=== PATIENT | male | born 1990 | race Caucasian/White ===

== ENCOUNTER 2017-10-30 21:00 | Inpatient (IN) | payer MEDICAID, OTHER ==
[~2017-10-30] VITALS: Ht 170.2 cm; Wt 64.5 kg
[2017-10-30 09:30] VITALS: RESP 18
[2017-10-30 21:30] VITALS: RESP 18
[2017-10-30 22:00] VITALS: BP 117/77; RESP 18
[2017-10-30 23:00] VITALS: BP 119/80; RESP 16
[2017-10-31] VITALS (49 sets, daily range): BP systolic 93–135; BP diastolic 61–117; PULSE 92–133; RESP 16–28; Ht 170.2 cm; Wt 64.5 kg
[2017-10-31] MEDS ORDERED: ACETAMINOPHEN 650 MG SUPP PR PRN (00:30)
[2017-10-31] MEDS ORDERED: ONDANSETRON 4 MG INJ IV PRN (00:30)
[2017-10-31] MEDS ORDERED: ALBUTEROL/IPRATROPIUM (NEB) 3 ML AMP HHN SCH (01:00)
[2017-10-31] MEDS ORDERED: DEXTROSE 5%-0.45% NACL 1,000 ML IV SCH (01:00)
[2017-10-31] MEDS: D5-NS + KCL 20 MEQ 1,000 ML IV SCH ×3 (03:48→20:54)
[2017-10-31] MEDS: morphine 2 MG INJ IV PRN ×3 (03:49→22:34)
[2017-10-31] MEDS ORDERED: SOD CHLORIDE 0.9% 1,000 ML IV ONE (04:00)
[2017-10-31 04:11] LABS: HEMATOCRIT 26.8 % (42.0-52.0); HEMOGLOBIN 9.3 g/dl (14.0-18.0)
[2017-10-31] MEDS ORDERED: PANTOPRAZOLE 40 MG INJ ONE (04:51)
[2017-10-31] MEDS: PANTOPRAZOLE 40 MG INJ IV SCH ×2 (05:11→18:49)
[2017-10-31] MEDS: IPRATROPIUM (HFA) 12.9 GM INHALER INH SCH ×5 (05:17→21:09)
[2017-10-31] MEDS: ALBUTEROL HFA 8 GM INHALER INH SCH ×5 (05:17→21:09)
[2017-10-31 06:04] LABS: BASOPHILS % 0.4 % (0.0-2.0); EOSINOPHILS # 0.2 10^3/ul (0.0-0.5); EOSINOPHILS % 2.2 % (0.0-7.0); HEMATOCRIT 24.9 % (42.0-52.0); HEMOGLOBIN 8.6 g/dl (14.0-18.0); LYMPHOCYTES # 2.9 10^3/ul (0.8-2.9); LYMPHOCYTES % 27.6 % (15.0-51.0); MEAN CORPUSCULAR HEMOGLOBIN 30.6 pg (29.0-33.0); MEAN CORPUSCULAR HGB CONC 34.5 g/dl (32.0-37.0); MEAN CORPUSCULAR VOLUME 88.6 fl (82.0-101.0); MEAN PLATELET VOLUME 9.7 fl (7.4-10.4); MONOCYTES % 9.8 % (0.0-11.0); NEUTROPHIL # 6.4 10^3/ul (1.6-7.5); NEUTROPHILS % 59.4 % (39.0-77.0); PLATELET COUNT 363 10^3/UL (140-415); RED BLOOD COUNT 2.81 10^6/ul (4.70-6.10); RED CELL DISTRIBUTION WIDTH 11.9 % (11.5-14.5); WHITE BLOOD COUNT 10.7 10^3/ul (4.8-10.8)
[2017-10-31 06:38] LABS: CALCIUM 9.3 mg/dl (8.4-10.2); CREATININE 0.69 mg/dl (0.61-1.24); POTASSIUM 3.7 mmol/L (3.5-5.1)
[2017-10-31 06:40] LABS: MAGNESIUM 1.6 mg/dl (1.7-2.5); PHOSPHORUS 4.9 mg/dl (2.5-4.9)
[2017-10-31] MEDS ORDERED: PENDING SANTYL ORDER FOR WOUND CARE XX PRN (07:00)
--- NOTE | 2017-10-31 08:34 | CONS ---
Date/Time of Note Date/Time of Note DATE: 10/31/17 TIME: 08:28 Assessment/Plan Assessment/Plan Additional Assessment/Plan The G-tube dressing was taken down exposing a very large clot. This clot was removed in its entirety and the area cleaned at the time of this examination there was no bleeding at the G-tube site. Plan continue monitoring H&H and observe for bleeding. If the patient rebleeds we may have to remove the G-tube and pack the tract with Surgicel as an initial measure. Further recommendations will be forthcoming and based on the patient' s further workup and clinical course. Consultation Date/Type/Reason Admit Date/Time Oct 30, 2017 at 21:00 Date of Consultation: Oct 31, 2017 Reason for Consultation Bleeding at gastrostomy site Hx of Present Illness The patient is a 27-year-old ventilator dependent male who was in [place] yesterday. At that time he started to develop active bleeding from the G-tube site. The NG output at that time was bilious, while the blood was coming around the G-tube. The patient was seen by Dr. Hoffmann who cauterized the G- tube tract site. The patient later continued to bleed, and was therefore transferred to the intensive care unit for closer monitoring and possible surgical intervention. Since his arrival to the intensive care unit he has had no further bleeding and his H&H is stable. Subjective hx not possible: pt non-verbal Past Medical History Medical History: other (Ventilator dependency) Social History Alcohol Use: none Smoking Status: Former smoker Exam/Review of Systems Vital Signs Vitals Vital Signs Date Time Temp Pulse Resp B/P Pulse Ox O2 Delivery O2 Flow Rate FiO2 10/31/17 08:00 99.8 104 18 121/75 100 Mechanical Ventilator 10/31/17 07:17 30 Intake and Output 10/30/17 10/30/17 10/31/17 15:00 23:00 07:00 Intake Total 0 ml 1400 ml Output Total 0 ml Balance 0 ml 1400 ml Exam Constitutional: non-verbal, obese Head: normocephalic Eyes: nl conjunctiva ENMT: intubated, other (Tracheostomy) Neck: supple Respiratory: clear to auscultation Cardiovascular: regular rate and rhythm Gastrointestinal: other (There is a G-tube site in the left upper quadrant with a large formed clot around the G-tube hub), soft Results Result Diagram: 10/31/17 0509 10/31/17 0509 Results 24 hrs Laboratory Tests Test 10/31/17 01:50 10/31/17 05:09 Hemoglobin 9.3 L 8.6 L Hematocrit 26.8 L 24.9 L White Blood Count 10.7 # Red Blood Count 2.81 L Mean Corpuscular Volume 88.6 Mean Corpuscular Hemoglobin 30.6 Mean Corpuscular Hemoglobin Concent 34.5 Red Cell Distribution Width 11.9 Platelet Count 363 Mean Platelet Volume 9.7 Neutrophils % 59.4 Lymphocytes % 27.6 Monocytes % 9.8 Eosinophils % 2.2 Basophils % 0.4 Nucleated Red Blood Cells % 0.0 Neutrophils # 6.4 Lymphocytes # 2.9 Monocytes # 1.0 H Eosinophils # 0.2 Basophils # 0.0 Nucleated Red Blood Cells # 0.0 Sodium Level 143 Potassium Level 3.7 Chloride Level 105 Carbon Dioxide Level 26 Anion Gap 16 Blood Urea Nitrogen 10 Creatinine 0.69 Glucose Level 108 Calcium Level 9.3 Phosphorus Level 4.9 Magnesium Level 1.6 L Medications Medications Current Medications Pantoprazole 40 mg 40 mg BID@06,18 IV Last administered on 10/31/17 05:11; Admin Dose 40 MG; Start 10/31/17 at 06:00 Levofloxacin/ Dextrose (Levaquin 500mg/ D5W 100 ml (Pmx)) 100 ml @ 100 mls/hr Q24H IVPB ; Start 10/31/17 at 18:30; Stop 11/03/17 at 19:29 Morphine Sulfate (morphine) 2 mg Q4H PRN IV PAIN Last administered on 03:49; Admin Dose 2 MG; Start 10/31/17 at 00:30 Ondansetron HCl (Zofran Inj) 4 mg Q6H PRN IV NAUSEA AND/OR VOMITING; Start at 00:30 Acetaminophen 650 mg 650 mg Q4H PRN [place] PAIN AND OR ELEVATED TEMP; Start at 00:30 Dextrose/Sodium Chloride 1,000 ml @ 100 mls/hr Q10H IV ; Start 10/31/17 at 01: 00 Multivitamins 10 ml/Dextrose/ Sodium Chloride 1,010 ml @ 100 mls/hr DAILY IV ; Start 10/31/17 at 09:00 Potassium Chloride/Dextrose/ Sod Cl (D5-NS + KCl 20 Meq) 1,000 ml @ 100 mls/hr Q10H IV Last administered on 10/31/17t 03:48; Admin Dose 100 MLS/HR; Start at 01:00 AKUA FLOWERS MD Oct 31, 2017 08:34
[2017-10-31] MEDS: MULTIVITAMINS 10 ML in DEXTROSE 5%-0.45% NACL 1,000 ML IV SCH (09:30)
[2017-10-31 12:25] LABS: HEMATOCRIT 22.4 % (42.0-52.0); HEMOGLOBIN 7.7 g/dl (14.0-18.0)
--- NOTE | 2017-10-31 13:13 | CONS ---
Date/Time of Note Date/Time of Note DATE: 10/31/17 TIME: 13:09 Assessment/Plan Assessment/Plan Additional Assessment/Plan Chest x-ray was reviewed from of this month which is showing left lower lobe basilar atelectasis. Ventilator setting; AC of 16, tidal volume 500, PEEP of 5, 30% FiO2. Assessment and recommendations; 1. Patient admitted with bleeding from G-tube site patient to undergo blood transfusion. 2. Mild sinus tachycardia from anemia. 3. Chronic respiratory failure with a history of neuro trauma with C 1 spinal injury. Continue current supportive care. Transfuse packed RBC. Monitor H&H. Obtain follow-up chest x-ray. Continue Levaquin for now. Consultation Date/Type/Reason Admit Date/Time Oct 30, 2017 at 21:00 Date of Consultation: Oct 31, 2017 Type of Consultation: Pulmonary/critical care Reason for Consultation Pulmonary consultation requested for evaluation of chronic respiratory failure. Next History of presenting any; patient is a 27-year-old male who was transferred to [facility] ICU after developing bleeding at the G-tube placement site yesterday at [facility]. Patient was evaluated by the drapery counselor and the site was cauterized however the patient continued to bleed. The wound was evaluated by general surgeon and a large clot was removed with dressing applied. By the time I saw the patient in ICU, patient is completely awake and alert on ventilator via tracheostomy and did not appear to be in any distress. Patient denies having any shortness of breath or abdominal pain. Past medical history; 1. history of neuro trauma with left hemiplegia. 2. Status post G-tube placement and tracheostomy. Patient remains ventilator dependent. Patient also has a C1 cervical spine injury. Medications; reviewed. Allergies; none. Social history; noncontributory. Occupational history; patient is on disability. Family history; noncontributory. Review of systems; patient denies any headache, seizures, shortness of breath, chest pain. Any abdominal pain. Nausea vomiting. Any fever or chills. General exam; young male, on ventilator via tracheostomy awake and alert. Currently in no distress. Past Medical History Medical History: other (Ventilator dependency) Social History Alcohol Use: none Smoking Status: Former smoker Exam/Review of Systems Vital Signs Vitals Vital Signs Date Time Temp Pulse Resp B/P Pulse Ox O2 Delivery O2 Flow Rate FiO2 10/31/17 13:00 113 19 119/88 100 Mechanical Ventilator 10/31/17 12:55 30 10/31/17 12:00 99.1 Intake and Output 10/30/17 10/30/17 10/31/17 15:00 23:00 07:00 Intake Total 0 ml 1400 ml Output Total 0 ml Balance 0 ml 1400 ml Exam HEENT exam; pupils are midsize reactive to light bilaterally patient has fair dentition. C-spine collar in place. Tracheostomy in place. Patient has good dentition. Chest exam; clear to auscultation. S1-S2 audible, no murmurs. Regular rhythm. Tachycardic. Abdomen exam; abdominal binder in place at site of G-tube placement. No active bleeding seen. No organomegaly. Abdomen is nontender. Bowel sounds audible. Extremity exam; no edema. Pulses 1+ bilaterally. No clubbing. EARLY MORNING exam; patient has left hemiplegia. Results Result Diagram: 10/31/17 1209 10/31/17 0509 Results 24 hrs Laboratory Tests Test 10/31/17 01:50 10/31/17 05:09 10/31/17 12:09 Hemoglobin 9.3 L 8.6 L 7.7 L Hematocrit 26.8 L 24.9 L 22.4 L White Blood Count 10.7 # Red Blood Count 2.81 L Mean Corpuscular Volume 88.6 Mean Corpuscular Hemoglobin 30.6 Mean Corpuscular Hemoglobin Concent 34.5 Red Cell Distribution Width 11.9 Platelet Count 363 Mean Platelet Volume 9.7 Neutrophils % 59.4 Lymphocytes % 27.6 Monocytes % 9.8 Eosinophils % 2.2 Basophils % 0.4 Nucleated Red Blood Cells % 0.0 Neutrophils # 6.4 Lymphocytes # 2.9 Monocytes # 1.0 H Eosinophils # 0.2 Basophils # 0.0 Nucleated Red Blood Cells # 0.0 Sodium Level 143 Potassium Level 3.7 Chloride Level 105 Carbon Dioxide Level 26 Anion Gap 16 Blood Urea Nitrogen 10 Creatinine 0.69 Glucose Level 108 Calcium Level 9.3 Phosphorus Level 4.9 Magnesium Level 1.6 L Medications Medications Current Medications Pantoprazole 40 mg 40 mg BID@06,18 IV Last administered on 10/31/17t 05:11; Admin Dose 40 MG; Start 10/31/17 at 06:00 Levofloxacin/ Dextrose (Levaquin 500mg/ D5W 100 ml (Pmx)) 100 ml @ 100 mls/hr Q24H IVPB ; Start 10/31/17 at 18:30; Stop 11/03/17 at 19:29 Morphine Sulfate (morphine) 2 mg Q4H PRN IV PAIN Last administered on 03:49; Admin Dose 2 MG; Start 10/31/17 at 00:30 Ondansetron HCl (Zofran Inj) 4 mg Q6H PRN IV NAUSEA AND/OR VOMITING; Start at 00:30 Acetaminophen 650 mg 650 mg Q4H PRN [place] PAIN AND OR ELEVATED TEMP; Start at 00:30 Multivitamins 10 ml/Dextrose/ Sodium Chloride 1,010 ml @ 100 mls/hr DAILY IV Last administered on 10/31/17 09:30; Admin Dose 100 MLS/HR; Start 10/31/17 at 09:00 Potassium Chloride/Dextrose/ Sod Cl (D5-NS + KCl 20 Meq) 1,000 ml @ 100 mls/hr Q10H IV Last administered on 10/31/17 03:48; Admin Dose 100 MLS/HR; Start at 01:00 GANGA SALES Oct 31, 2017 13:13
--- NOTE | 2017-10-31 14:02 | HP ---
Date/Time of Note Date/Time of Note DATE: 10/31/17 TIME: 13:48 Assessment/Plan Lines/Catheters IV Catheter Type (from Nrs): Peripheral IV Urinary Cath still in place: Yes Reason Cath still needed: urinary retention Assessment/Plan Assessment/Plan - G-tube site bleeding - admit to icu - per GI - 2 UNITS prbc transfusion today patient to undergo blood transfusion. - Monitor H&H. 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 - per pulmonary - follow-up chest x-ray. - Continue Levaquin -Dysphagia - sp PEG placement - aspiration precautions Total critical care time spent 50 mins Further recommendations based on clinical course. Plan of care discussed with Dr Draper.Continue current supportive care. HPI/ROS Admit Date/Time Admit Date/Time Oct 30, 2017 at 21:00 Hx of Present Illness This patient is a 27-year-old male is admittedto [facility] ICU with c/o bleeding at the G-tube placement site yesterday at [facility]. Patient Is evaluated by the manager balance and the site was cauterized but patient continued to bleed. The wound was evaluated by general surgeon and a large clot was removed with dressing applied. During assessment; , patient is completely awake and alert on ventilator via tracheostomy, NAD noted, confused , pulling lines. No reported fever, chills, shortness of breath. Allergies; none. ROS Subjective hx not possible: pt non-verbal PMH/Family/Social Past Medical History Past Medical History Medical History: other (Ventilator dependency) - history of neuro trauma with left hemiplegia. Social History Alcohol Use: none Smoking Status: Former smoker Occupational history; patient is on disability. Social history; noncontributory. Family history; noncontributory. Medical History: other (Ventilator dependency) Social History Alcohol Use: none Smoking Status: Former smoker Exam/Review of Systems Vital Signs Vitals Vital Signs Date Time Temp Pulse Resp B/P Pulse Ox O2 Delivery O2 Flow Rate FiO2 10/31/17 13:00 113 19 119/88 100 Mechanical Ventilator 10/31/17 12:55 30 10/31/17 12:00 99.1 Intake and Output 10/30/17 10/30/17 10/31/17 15:00 23:00 07:00 Intake Total 0 ml 1400 ml Output Total 0 ml Balance 0 ml 1400 ml Exam Constitutional: alert, non-verbal Respiratory: diminished breath sounds, normal air movement Cardiovascular: nl pulses Gastrointestinal: other, soft Musculoskeletal: nl extremities to inspection Neurological: confused Labs Result Diagram: 10/31/17 1209 10/31/17 0509 Medications Medications Current Medications Pantoprazole 40 mg 40 mg BID@06,18 IV Last administered on 10/31/17 05:11; Admin Dose 40 MG; Start 10/31/17 at 06:00 Levofloxacin/ Dextrose (Levaquin 500mg/ D5W 100 ml (Pmx)) 100 ml @ 100 mls/hr Q24H IVPB ; Start 10/31/17 at 18:30; Stop 11/03/17 at 19:29 Morphine Sulfate (morphine) 2 mg Q4H PRN IV PAIN Last administered on 03:49; Admin Dose 2 MG; Start 10/31/17 at 00:30 Ondansetron HCl (Zofran Inj) 4 mg Q6H PRN IV NAUSEA AND/OR VOMITING; Start at 00:30 Acetaminophen 650 mg 650 mg Q4H PRN [place] PAIN AND OR ELEVATED TEMP; Start at 00:30 Multivitamins 10 ml/Dextrose/ Sodium Chloride 1,010 ml @ 100 mls/hr DAILY IV Last administered on 10/31/17 09:30; Admin Dose 100 MLS/HR; Start 10/31/17 at 09:00 Potassium Chloride/Dextrose/ Sod Cl (D5-NS + KCl 20 Meq) 1,000 ml @ 100 mls/hr Q10H IV Last administered on 10/31/17 03:48; Admin Dose 100 MLS/HR; Start at 01:00 CHRYSTAL CEJA Oct 31, 2017 13:58
[2017-10-31] MEDS: LEVOFLOXACIN 500MG/D5W (PMX) 100 ML IVPB SCH (18:50)
[2017-11-01] VITALS (25 sets, daily range): BP systolic 93–141; BP diastolic 51–87; PULSE 94–115; RESP 16–26
[2017-11-01] MEDS: IPRATROPIUM (HFA) 12.9 GM INHALER INH SCH ×6 (01:26→21:14)
[2017-11-01] MEDS: ALBUTEROL HFA 8 GM INHALER INH SCH ×6 (01:26→21:14)
[2017-11-01 01:39] LABS: HEMATOCRIT 27.4 % (42.0-52.0); HEMOGLOBIN 9.4 g/dl (14.0-18.0)
[2017-11-01] MEDS: PANTOPRAZOLE 40 MG INJ IV SCH ×2 (05:29→17:42)
[2017-11-01] MEDS: D5-NS + KCL 20 MEQ 1,000 ML IV SCH ×2 (08:38→17:00)
[2017-11-01] MEDS: morphine 2 MG INJ IV PRN ×2 (09:35→18:43)
[2017-11-01] MEDS: MULTIVITAMINS 10 ML in DEXTROSE 5%-0.45% NACL 1,000 ML IV SCH (09:36)
[2017-11-01 09:40] LABS: BASOPHILS % 0.5 % (0.0-2.0); EOSINOPHILS # 0.3 10^3/ul (0.0-0.5); EOSINOPHILS % 3.2 % (0.0-7.0); HEMATOCRIT 26.2 % (42.0-52.0); HEMOGLOBIN 9.1 g/dl (14.0-18.0); LYMPHOCYTES % 33.4 % (15.0-51.0); MEAN CORPUSCULAR HEMOGLOBIN 31.1 pg (29.0-33.0); MEAN CORPUSCULAR HGB CONC 34.7 g/dl (32.0-37.0); MEAN CORPUSCULAR VOLUME 89.4 fl (82.0-101.0); MONOCYTE # 0.8 10^3/ul (0.3-0.9); MONOCYTES % 9.3 % (0.0-11.0); NEUTROPHIL # 4.7 10^3/ul (1.6-7.5); NEUTROPHILS % 52.6 % (39.0-77.0); PLATELET COUNT 292 10^3/UL (140-415); RED BLOOD COUNT 2.93 10^6/ul (4.70-6.10); RED CELL DISTRIBUTION WIDTH 12.6 % (11.5-14.5); WHITE BLOOD COUNT 8.9 10^3/ul (4.8-10.8)
[2017-11-01 10:03] LABS: CALCIUM 8.5 mg/dl (8.4-10.2); CREATININE 0.51 mg/dl (0.61-1.24)
[2017-11-01 10:27] LABS: POTASSIUM 3.4 mmol/L (3.5-5.1)
--- NOTE | 2017-11-01 12:07 | CONS ---
Date/Time of Note Date/Time of Note DATE: 11/01/17 TIME: 12:05 Assessment/Plan Assessment/Plan Additional Assessment/Plan Ventilator setting; AC of 16, tidal volume 500, PEEP of 5, 30% FiO2. Assessment and recommendations; 1. Patient admitted with bleeding from G-tube insertion site with interval improvement. 2. Anemia from bleeding with interval correction after blood transfusion with stable hematocrit. 3. Chronic respiratory failure due to C-spine trauma. 4. Quadriplegia. 5. Interval resolution of sinus tachycardia. Continue current treatment. Consider discharge. Consultation Date/Type/Reason Admit Date/Time Oct 30, 2017 at 21:00 Initial Consult Date 10/31/17 Type of Consultation: Pulmonary/critical care 24 HR Interval Summary Free Text/Dictation Patient's condition is stable. Has been transferred out of ICU to telemetry unit. Remains awake and alert. No further bleeding noted from G-tube insertion site. General exam; young male, awake, currently no distress. Exam/Review of Systems Vital Signs Vitals Vital Signs Date Time Temp Pulse Resp B/P Pulse Ox O2 Delivery O2 Flow Rate FiO2 11/01/17 11:32 98.1 98 18 121/74 100 11/01/17 11:15 30 11/01/17 02:00 Mechanical Ventilator Intake and Output 10/31/17 10/31/17 11/01/17 15:00 23:00 07:00 Intake Total 1390 ml 1710 ml 1440 ml Output Total 330 ml 535 ml 1700 ml Balance 1060 ml 1175 ml -260 ml Exam HEENT exam; tracheostomy in place. Patient has hard C-spine collar in place. Dentition is fair. Pupils are midsize and reactive to light. Chest exam; clear to auscultation. S1-S2 audible, no murmurs. Regular rhythm. Abdomen exam; soft, abdominal binder in place. G-tube in place. Bowel sounds audible. Abdomen is nontender. Extremity exam; no edema. SERIALS LIBRARIAN exam; patient has stable quadriplegia. Results Result Diagram: 11/01/17 0731 11/01/17 0730 Results 24 hrs Laboratory Tests Test 10/31/17 12:09 11/01/17 00:42 11/01/17 07:30 11/01/17 07:31 Hemoglobin 7.7 L 9.4 #L 9.1 L Hematocrit 22.4 L 27.4 #L 26.2 L Sodium Level 143 Potassium Level 3.4 L Chloride Level 108 Carbon Dioxide Level 24 Anion Gap 14 Blood Urea Nitrogen 3 L Creatinine 0.51 L Glucose Level 122 Calcium Level 8.5 White Blood Count 8.9 Red Blood Count 2.93 L Mean Corpuscular Volume 89.4 Mean Corpuscular Hemoglobin 31.1 Mean Corpuscular Hemoglobin Concent 34.7 Red Cell Distribution Width 12.6 Platelet Count 292 Mean Platelet Volume 10.0 Neutrophils % 52.6 Lymphocytes % 33.4 Monocytes % 9.3 Eosinophils % 3.2 Basophils % 0.5 Nucleated Red Blood Cells % 0.0 Neutrophils # 4.7 Lymphocytes # 3.0 H Monocytes # 0.8 Eosinophils # 0.3 Basophils # 0.0 Nucleated Red Blood Cells # 0.0 Medications Medications Current Medications Pantoprazole 40 mg 40 mg BID@06,18 IV Last administered on 11/01/17 05:29; Admin Dose 40 MG; Start 10/31/17 at 06:00 Levofloxacin/ Dextrose (Levaquin 500mg/ D5W 100 ml (Pmx)) 100 ml @ 100 mls/hr Q24H IVPB Last administered on 10/31/17 18:50; Admin Dose 100 MLS/HR; Start 10/31/17 at 18:30; Stop 11/03/17 at 19:29 Morphine Sulfate (morphine) 2 mg Q4H PRN IV PAIN Last administered on 09:35; Admin Dose 2 MG; Start 10/31/17 at 00:30 Ondansetron HCl (Zofran Inj) 4 mg Q6H PRN IV NAUSEA AND/OR VOMITING; Start at 00:30 Acetaminophen 650 mg 650 mg Q4H PRN [place] PAIN AND OR ELEVATED TEMP; Start at 00:30 Multivitamins 10 ml/Dextrose/ Sodium Chloride 1,010 ml @ 100 mls/hr DAILY IV Last administered on 11/01/17 09:36; Admin Dose 100 MLS/HR; Start 10/31/17 at 09:00 Potassium Chloride/Dextrose/ Sod Cl (D5-NS + KCl 20 Meq) 1,000 ml @ 100 mls/hr Q10H IV Last administered on 10/31/17 20:54; Admin Dose 100 MLS/HR; Start at 01:00 Miscellaneous Information (Pending Santyl Order For Wound Care) This patient smith... PRN PRN XX WOUND CARE; Start 10/31/17 at 07:00 GANGA SALES Nov 01, 2017 12:07
--- NOTE | 2017-11-01 14:41 | PN ---
Date/Time of Note Date/Time of Note DATE: 11/01/17 TIME: 14:40 Assessment/Plan Lines/Catheters IV Catheter Type (from [facility]): Saline Lock Meneses in Place (from [facility]): No Assessment/Plan Chief Complaint/Hosp Course The patient is a 27-year-old ventilator dependent male who was in [place] yesterday. At that time he started to develop active bleeding from the G-tube site. The NG output at that time was bilious, while the blood was coming around the G-tube. The patient was seen by Dr. Hoffmann who cauterized the G- tube tract site. The patient later continued to bleed, and was therefore transferred to the intensive care unit for closer monitoring and possible surgical intervention. Since his arrival to the intensive care unit he has had no further bleeding and his H&H is stable. Problems: Assessment/Plan H&H is stable Will sign off and see again prn your request Subjective 24 Hr Interval Summary No further bleeding from G-tube site Exam/Review of Systems Vital Signs Vitals Vital Signs Date Time Temp Pulse Resp B/P Pulse Ox O2 Delivery O2 Flow Rate FiO2 11/01/17 13:35 113 25 96 30 11/01/17 11:32 98.1 121/74 11/01/17 02:00 Mechanical Ventilator Intake and Output 10/31/17 10/31/17 11/01/17 15:00 23:00 07:00 Intake Total 1390 ml 1710 ml 1440 ml Output Total 330 ml 535 ml 1700 ml Balance 1060 ml 1175 ml -260 ml Results Result Diagram: 11/01/17 0731 11/01/17 0730 AKUA FLOWERS MD Nov 01, 2017 14:41
[2017-11-01 15:27] LABS: HEMATOCRIT 28.2 % (42.0-52.0); HEMOGLOBIN 9.7 g/dl (14.0-18.0)
[2017-11-01] MEDS: LEVOFLOXACIN 500MG/D5W (PMX) 100 ML IVPB SCH (18:43)
[2017-11-01 20:42] LABS: HEMATOCRIT 28.5 % (42.0-52.0); HEMOGLOBIN 9.8 g/dl (14.0-18.0)
[2017-11-01] MEDS: LORAZEPAM 2 MG INJ IV PRN (22:00)
[2017-11-02] VITALS (25 sets, daily range): BP systolic 109–135; BP diastolic 59–93; PULSE 85–112; RESP 16–29
[2017-11-02] MEDS: ALBUTEROL HFA 8 GM INHALER INH SCH ×6 (01:12→20:57)
[2017-11-02] MEDS: IPRATROPIUM (HFA) 12.9 GM INHALER INH SCH ×6 (01:12→20:57)
[2017-11-02] MEDS: D5-NS + KCL 20 MEQ 1,000 ML IV SCH ×2 (03:00→13:00)
[2017-11-02] MEDS: PANTOPRAZOLE 40 MG INJ IV SCH ×2 (05:56→17:44)
[2017-11-02 08:33] LABS: BASOPHILS % 0.5 % (0.0-2.0); EOSINOPHILS # 0.2 10^3/ul (0.0-0.5); EOSINOPHILS % 2.9 % (0.0-7.0); HEMATOCRIT 28.4 % (42.0-52.0); HEMOGLOBIN 9.7 g/dl (14.0-18.0); LYMPHOCYTES # 2.3 10^3/ul (0.8-2.9); LYMPHOCYTES % 28.4 % (15.0-51.0); MEAN CORPUSCULAR HGB CONC 34.2 g/dl (32.0-37.0); MEAN CORPUSCULAR VOLUME 90.7 fl (82.0-101.0); MEAN PLATELET VOLUME 9.7 fl (7.4-10.4); MONOCYTE # 0.7 10^3/ul (0.3-0.9); MONOCYTES % 8.4 % (0.0-11.0); NEUTROPHIL # 4.8 10^3/ul (1.6-7.5); NEUTROPHILS % 58.7 % (39.0-77.0); NUCLEATED RED BLOOD CELLS% 0.2 /100WBC (0.0-0.0); PLATELET COUNT 284 10^3/UL (140-415); RED BLOOD COUNT 3.13 10^6/ul (4.70-6.10); RED CELL DISTRIBUTION WIDTH 12.5 % (11.5-14.5); WHITE BLOOD COUNT 8.2 10^3/ul (4.8-10.8)
[2017-11-02 08:51] LABS: CALCIUM 9.5 mg/dl (8.4-10.2); CREATININE 0.55 mg/dl (0.61-1.24)
[2017-11-02] MEDS: LORAZEPAM 2 MG INJ IV PRN ×2 (10:07→21:09)
[2017-11-02] MEDS: MULTIVITAMINS 10 ML in DEXTROSE 5%-0.45% NACL 1,000 ML IV SCH (10:13)
[2017-11-02 10:18] LABS: HEMOGLOBIN 10.1 g/dl (14.0-18.0)
--- NOTE | 2017-11-02 12:28 | CONS ---
Date/Time of Note Date/Time of Note DATE: 11/02/17 TIME: 12:26 Assessment/Plan Assessment/Plan Additional Assessment/Plan Ventilator setting; AC of 16, tidal volume 500, PEEP of 5, 30% FiO2. Assessment and recommendations; next 1. Patient admitted for bleeding from G-tube insertion site status post blood transfusion with stable hematocrit. No further bleeding observed. 2. Quadriplegia with ensuing respiratory failure requiring full invasive mechanical ventilation. Continue current supportive care. Consider discharge. Consultation Date/Type/Reason Admit Date/Time Oct 30, 2017 at 21:00 Initial Consult Date 10/31/17 Type of Consultation: Pulmonary/critical care 24 HR Interval Summary Free Text/Dictation Patient's condition is stable. Remains awake and alert. Has remained hemodynamically stable. General exam; young male, on ventilator via tracheostomy, currently in no distress. Exam/Review of Systems Vital Signs Vitals Vital Signs Date Time Temp Pulse Resp B/P Pulse Ox O2 Delivery O2 Flow Rate FiO2 11/02/17 11:09 98.7 80 20 115/67 100 11/02/17 08:05 30 11/02/17 06:00 Mechanical Ventilator Intake and Output 11/01/17 11/01/17 11/02/17 15:00 23:00 07:00 Intake Total 1520 ml 590 ml Output Total 2100 ml 1300 ml Balance -580 ml -710 ml Exam HEENT exam; tracheostomy placed. Patient has good dentition. No neck masses. No lymphadenopathy. He was are midsize and reactive to light. Chest exam; clear to auscultation. S1-S2 audible, no murmurs. Regular rhythm. Abdomen exam; soft, G-tube in place. No overt bleeding noted from G-tube insertion site. Bowel sounds audible. Abdomen is nontender. Extremity exam; no edema. PRODUCT DEVELOPMENT WORKER exam; patient remains awake and alert and has stable quadriplegia. Results Result Diagram: 11/02/17 1000 11/02/17 0751 Results 24 hrs Laboratory Tests Test 11/01/17 15:03 11/01/17 20:34 11/02/17 07:51 11/02/17 10:00 Hemoglobin 9.7 L 9.8 L 9.7 L 10.1 L Hematocrit 28.2 L 28.5 L 28.4 L 30.0 L White Blood Count 8.2 Red Blood Count 3.13 L Mean Corpuscular Volume 90.7 Mean Corpuscular Hemoglobin 31.0 Mean Corpuscular Hemoglobin Concent 34.2 Red Cell Distribution Width 12.5 Platelet Count 284 Mean Platelet Volume 9.7 Neutrophils % 58.7 Lymphocytes % 28.4 Monocytes % 8.4 Eosinophils % 2.9 Basophils % 0.5 Nucleated Red Blood Cells % 0.2 H Neutrophils # 4.8 Lymphocytes # 2.3 Monocytes # 0.7 Eosinophils # 0.2 Basophils # 0.0 Nucleated Red Blood Cells # 0.0 Sodium Level 143 Potassium Level 4.0 Chloride Level 107 Carbon Dioxide Level 28 Anion Gap 12 Blood Urea Nitrogen 3 L Creatinine 0.55 L Glucose Level 120 Calcium Level 9.5 Medications Medications Current Medications Pantoprazole 40 mg 40 mg BID@06,18 IV Last administered on 11/02/17 05:56; Admin Dose 40 MG; Start 10/31/17 at 06:00 Levofloxacin/ Dextrose (Levaquin 500mg/ D5W 100 ml (Pmx)) 100 ml @ 100 mls/hr Q24H IVPB Last administered on 11/01/17 18:43; Admin Dose 100 MLS/HR; Start 10/31/17 at 18:30; Stop 11/03/17 at 19:29 Morphine Sulfate (morphine) 2 mg Q4H PRN IV PAIN Last administered on 18:43; Admin Dose 2 MG; Start 10/31/17 at 00:30 Ondansetron HCl (Zofran Inj) 4 mg Q6H PRN IV NAUSEA AND/OR VOMITING; Start at 00:30 Acetaminophen 650 mg 650 mg Q4H PRN [place] PAIN AND OR ELEVATED TEMP; Start at 00:30 Multivitamins 10 ml/Dextrose/ Sodium Chloride 1,010 ml @ 100 mls/hr DAILY IV Last administered on 11/02/17 10:13; Admin Dose 100 MLS/HR; Start 10/31/17 at 09:00 Potassium Chloride/Dextrose/ Sod Cl (D5-NS + KCl 20 Meq) 1,000 ml @ 100 mls/hr Q10H IV Last administered on 11/02/17 03:00; Admin Dose 100 MLS/HR; Start at 01:00 Miscellaneous Information (Pending Santyl Order For Wound Care) This patient smtih... PRN PRN XX WOUND CARE; Start 10/31/17 at 07:00 Lorazepam (Ativan) 1 mg Q4H PRN IV AGITATION Last administered on 11/02/17t 10 :07; Admin Dose 1 MG; Start 11/01/17 at 22:00 GANGA SALES Nov 02, 2017 12:28
--- NOTE | 2017-11-02 12:34 | PN ---
Date/Time of Note Date/Time of Note DATE: 11/02/17 TIME: 12:34 Assessment/Plan VTE Prophylaxis VTE Prophylaxis Intervention: other Lines/Catheters IV [facility]ter Type (from [facility]): Saline Lock Urinary Cath still in place: No Assessment/Plan Chief Complaint/Hosp Course - G-tube site bleeding - per GI - 2 UNITS prbc transfusion today patient to undergo blood transfusion. - Monitor H&H. 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 - per pulmonary - follow-up chest x-ray. - Continue Levaquin -Dysphagia - sp PEG placement - aspiration precautions Problems: Subjective 24 Hr Interval Summary Free Text/Dictation Patient has no complaints Exam/Review of Systems Vital Signs Vitals Vital Signs Date Time Temp Pulse Resp B/P Pulse Ox O2 Delivery O2 Flow Rate FiO2 11/02/17 11:09 98.7 80 20 115/67 100 11/02/17 08:05 30 11/02/17 06:00 Mechanical Ventilator Intake and Output 11/01/17 11/01/17 11/02/17 14:59 22:59 06:59 Intake Total 1520 ml 590 ml Output Total 2100 ml 1300 ml Balance -580 ml -710 ml Exam Constitutional: well developed Head: atraumatic, normocephalic Neck: supple Respiratory: diminished breath sounds Cardiovascular: regular rate and rhythm Gastrointestinal: non-tender, soft Extremities: normal pulses Results Result Diagram: 11/02/17 1000 11/02/17 0751 Results 24 hrs Laboratory Tests Test 11/01/17 15:03 11/01/17 20:34 11/02/17 07:51 11/02/17 10:00 Hemoglobin 9.7 L 9.8 L 9.7 L 10.1 L Hematocrit 28.2 L 28.5 L 28.4 L 30.0 L White Blood Count 8.2 Red Blood Count 3.13 L Mean Corpuscular Volume 90.7 Mean Corpuscular Hemoglobin 31.0 Mean Corpuscular Hemoglobin Concent 34.2 Red Cell Distribution Width 12.5 Platelet Count 284 Mean Platelet Volume 9.7 Neutrophils % 58.7 Lymphocytes % 28.4 Monocytes % 8.4 Eosinophils % 2.9 Basophils % 0.5 Nucleated Red Blood Cells % 0.2 H Neutrophils # 4.8 Lymphocytes # 2.3 Monocytes # 0.7 Eosinophils # 0.2 Basophils # 0.0 Nucleated Red Blood Cells # 0.0 Sodium Level 143 Potassium Level 4.0 Chloride Level 107 Carbon Dioxide Level 28 Anion Gap 12 Blood Urea Nitrogen 3 L Creatinine 0.55 L Glucose Level 120 Calcium Level 9.5 Medications Medications Current Medications Pantoprazole 40 mg 40 mg BID@06,18 IV Last administered on 11/02/17 05:56; Admin Dose 40 MG; Start 10/31/17 at 06:00 Levofloxacin/ Dextrose (Levaquin 500mg/ D5W 100 ml (Pmx)) 100 ml @ 100 mls/hr Q24H IVPB Last administered on 11/01/17 18:43; Admin Dose 100 MLS/HR; Start 10/31/17 at 18:30; Stop 11/03/17 at 19:29 Morphine Sulfate (morphine) 2 mg Q4H PRN IV PAIN Last administered on 18:43; Admin Dose 2 MG; Start 10/31/17 at 00:30 Ondansetron HCl (Zofran Inj) 4 mg Q6H PRN IV NAUSEA AND/OR VOMITING; Start at 00:30 Acetaminophen 650 mg 650 mg Q4H PRN [place] PAIN AND OR ELEVATED TEMP; Start at 00:30 Multivitamins 10 ml/Dextrose/ Sodium Chloride 1,010 ml @ 100 mls/hr DAILY IV Last administered on 11/02/17 10:13; Admin Dose 100 MLS/HR; Start 10/31/17 at 09:00 Potassium Chloride/Dextrose/ Sod Cl (D5-NS + KCl 20 Meq) 1,000 ml @ 100 mls/hr Q10H IV Last administered on 11/02/17 03:00; Admin Dose 100 MLS/HR; Start at 01:00 Miscellaneous Information (Pending [facility] Order For Wound Care) This patient smith... PRN PRN XX WOUND CARE; Start 10/31/17 at 07:00 Lorazepam (Ativan) 1 mg Q4H PRN IV AGITATION Last administered on 11/02/17 10 :07; Admin Dose 1 MG; Start 11/01/17 at 22:00 CLARI CINTRON Nov 02, 2017 12:34
[2017-11-02] MEDS: LEVOFLOXACIN 500MG/D5W (PMX) 100 ML IVPB SCH (17:44)
[2017-11-02 20:55] LABS: HEMATOCRIT 30.3 % (42.0-52.0); HEMOGLOBIN 10.1 g/dl (14.0-18.0)
[2017-11-03] VITALS (24 sets, daily range): BP systolic 108–182; BP diastolic 69–84; PULSE 88–112; RESP 16–27
[2017-11-03] MEDS: D5-NS + KCL 20 MEQ 1,000 ML IV SCH ×3 (00:44→19:00)
[2017-11-03] MEDS: IPRATROPIUM (HFA) 12.9 GM INHALER INH SCH ×6 (00:53→20:03)
[2017-11-03] MEDS: ALBUTEROL HFA 8 GM INHALER INH SCH ×6 (00:53→20:03)
[2017-11-03] MEDS: PANTOPRAZOLE 40 MG INJ IV SCH ×2 (05:09→18:50)
[2017-11-03] MEDS: LORAZEPAM 2 MG INJ IV PRN ×2 (05:50→23:35)
[2017-11-03 06:40] LABS: BASOPHILS % 0.4 % (0.0-2.0); EOSINOPHILS # 0.3 10^3/ul (0.0-0.5); EOSINOPHILS % 2.7 % (0.0-7.0); HEMATOCRIT 29.3 % (42.0-52.0); HEMOGLOBIN 9.9 g/dl (14.0-18.0); LYMPHOCYTES % 31.5 % (15.0-51.0); MEAN CORPUSCULAR HEMOGLOBIN 30.4 pg (29.0-33.0); MEAN CORPUSCULAR HGB CONC 33.8 g/dl (32.0-37.0); MEAN CORPUSCULAR VOLUME 89.9 fl (82.0-101.0); MEAN PLATELET VOLUME 9.9 fl (7.4-10.4); MONOCYTE # 0.9 10^3/ul (0.3-0.9); MONOCYTES % 9.1 % (0.0-11.0); NEUTROPHIL # 5.3 10^3/ul (1.6-7.5); NEUTROPHILS % 55.4 % (39.0-77.0); PLATELET COUNT 307 10^3/UL (140-415); RED BLOOD COUNT 3.26 10^6/ul (4.70-6.10); WHITE BLOOD COUNT 9.5 10^3/ul (4.8-10.8)
[2017-11-03 07:11] LABS: CALCIUM 9.7 mg/dl (8.4-10.2); CREATININE 0.57 mg/dl (0.61-1.24); POTASSIUM 3.9 mmol/L (3.5-5.1)
[2017-11-03] MEDS: MULTIVITAMINS 10 ML in DEXTROSE 5%-0.45% NACL 1,000 ML IV SCH (08:52)
[2017-11-03] MEDS: morphine 2 MG INJ IV PRN ×2 (11:31→17:56)
--- NOTE | 2017-11-03 12:01 | PN ---
Date/Time of Note Date/Time of Note DATE: 11/03/17 TIME: 12:00 Assessment/Plan VTE Prophylaxis VTE Prophylaxis Intervention: other Lines/Catheters [facility]from [facility] Saline Lock Urinary Cath still in place: No Assessment/Plan Chief Complaint/Hosp Course - G-tube site bleeding - per GI - 2 UNITS prbc transfusion today patient to undergo blood transfusion. - Monitor H&H. 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 - per pulmonary - follow-up chest x-ray. - Continue Levaquin -Dysphagia - sp PEG placement - aspiration precautions Problems: Subjective 24 Hr Interval Summary Free Text/Dictation Patient remain sedated, intubated Exam/Review of Systems Vital Signs Vitals Vital Signs Date Time Temp Pulse Resp B/P Pulse Ox O2 Delivery O2 Flow Rate FiO2 11/03/17 11:29 98.5 99 18 122/75 100 11/03/17 09:10 30 11/02/17 06:00 Mechanical Ventilator Intake and Output 11/02/17 11/02/17 11/03/17 15:00 23:00 07:00 Intake Total 540 ml Output Total 1100 ml Balance -560 ml Exam Constitutional: well developed Head: atraumatic, normocephalic Neck: supple Respiratory: diminished breath sounds Cardiovascular: regular rate and rhythm Gastrointestinal: non-tender, soft Extremities: normal pulses Results Result Diagram: 11/03/17 0553 11/03/17 0553 Results 24 hrs Laboratory Tests Test 11/02/17 20:33 11/03/17 05:41 11/03/17 05:53 Hemoglobin 10.1 L 9.9 L Hematocrit 30.3 L 29.3 L Lab Scanned Report BLOOD TRANSFUSION White Blood Count 9.5 Red Blood Count 3.26 L Mean Corpuscular Volume 89.9 Mean Corpuscular Hemoglobin 30.4 Mean Corpuscular Hemoglobin Concent 33.8 Red Cell Distribution Width 13.0 Platelet Count 307 Mean Platelet Volume 9.9 Neutrophils % 55.4 Lymphocytes % 31.5 Monocytes % 9.1 Eosinophils % 2.7 Basophils % 0.4 Nucleated Red Blood Cells % 0.0 Neutrophils # 5.3 Lymphocytes # 3.0 H Monocytes # 0.9 Eosinophils # 0.3 Basophils # 0.0 Nucleated Red Blood Cells # 0.0 Sodium Level 143 Potassium Level 3.9 Chloride Level 105 Carbon Dioxide Level 29 Anion Gap 13 Blood Urea Nitrogen 5 L Creatinine 0.57 L Glucose Level 108 Calcium Level 9.7 Medications Medications Current Medications Pantoprazole 40 mg 40 mg BID@06,18 IV Last administered on 11/03/17 05:09; Admin Dose 40 MG; Start 10/31/17 at 06:00 Levofloxacin/ Dextrose (Levaquin 500mg/ D5W 100 ml (Pmx)) 100 ml @ 100 mls/hr Q24H IVPB Last administered on 11/02/17 17:44; Admin Dose 100 MLS/HR; Start 10/31/17 at 18:30; Stop 11/03/17 at 19:29 Morphine Sulfate (morphine) 2 mg Q4H PRN IV PAIN Last administered on 11:31; Admin Dose 2 MG; Start 10/31/17 at 00:30 Ondansetron HCl (Zofran Inj) 4 mg Q6H PRN IV NAUSEA AND/OR VOMITING; Start at 00:30 Acetaminophen 650 mg 650 mg Q4H PRN [place] PAIN AND OR ELEVATED TEMP; Start at 00:30 Multivitamins 10 ml/Dextrose/ Sodium Chloride 1,010 ml @ 100 mls/hr DAILY IV Last administered on 11/03/17 08:52; Admin Dose 100 MLS/HR; Start 10/31/17 at 09:00 Potassium Chloride/Dextrose/ Sod Cl (D5-NS + KCl 20 Meq) 1,000 ml @ 100 mls/hr Q10H IV Last administered on 11/03/17 00:44; Admin Dose 100 MLS/HR; Start at 01:00 Miscellaneous Information (Pending [facility]yl Order For Wound Care) This patient smith... PRN PRN XX WOUND CARE; Start 10/31/17 at 07:00 Lorazepam (Ativan) 1 mg Q4H PRN IV AGITATION Last administered on 11/03/17 05 :50; Admin Dose 1 MG; Start 11/01/17 at 22:00 CLARI CINTRON Nov 03, 2017 12:01
[2017-11-03] MEDS: LEVOFLOXACIN 500MG/D5W (PMX) 100 ML IVPB SCH (18:50)
[2017-11-04] VITALS (28 sets, daily range): BP systolic 110–135; BP diastolic 60–89; PULSE 87–119; RESP 16–88
[2017-11-04] MEDS: IPRATROPIUM (HFA) 12.9 GM INHALER INH SCH ×6 (00:11→21:49)
[2017-11-04] MEDS: ALBUTEROL HFA 8 GM INHALER INH SCH ×6 (00:11→21:49)
[2017-11-04] MEDS: D5-NS + KCL 20 MEQ 1,000 ML IV SCH ×2 (05:00→15:00)
[2017-11-04] MEDS: PANTOPRAZOLE 40 MG INJ IV SCH ×2 (05:43→17:22)
[2017-11-04] MEDS: MULTIVITAMINS 10 ML in DEXTROSE 5%-0.45% NACL 1,000 ML IV SCH (09:05)
[2017-11-04 10:25] LABS: BASOPHILS % 0.5 % (0.0-2.0); EOSINOPHILS # 0.2 10^3/ul (0.0-0.5); EOSINOPHILS % 2.6 % (0.0-7.0); HEMOGLOBIN 10.4 g/dl (14.0-18.0); LYMPHOCYTES # 2.6 10^3/ul (0.8-2.9); LYMPHOCYTES % 30.2 % (15.0-51.0); MEAN CORPUSCULAR HEMOGLOBIN 30.6 pg (29.0-33.0); MEAN CORPUSCULAR HGB CONC 33.5 g/dl (32.0-37.0); MEAN CORPUSCULAR VOLUME 91.2 fl (82.0-101.0); MEAN PLATELET VOLUME 9.9 fl (7.4-10.4); MONOCYTE # 0.9 10^3/ul (0.3-0.9); MONOCYTES % 9.9 % (0.0-11.0); NEUTROPHIL # 4.9 10^3/ul (1.6-7.5); NEUTROPHILS % 56.2 % (39.0-77.0); PLATELET COUNT 302 10^3/UL (140-415); RED CELL DISTRIBUTION WIDTH 12.9 % (11.5-14.5); WHITE BLOOD COUNT 8.6 10^3/ul (4.8-10.8)
[2017-11-04 10:54] LABS: CALCIUM 9.7 mg/dl (8.4-10.2); CREATININE 0.5 mg/dl (0.61-1.24); POTASSIUM 4.2 mmol/L (3.5-5.1)
--- NOTE | 2017-11-04 11:31 | PN ---
Date/Time of Note Date/Time of Note DATE: 11/04/17 TIME: 11:31 Assessment/Plan VTE Prophylaxis VTE Prophylaxis Intervention: other Lines/Catheters IV Catheter Type (from [facility]): Saline Lock Urinary Cath still in place: No Assessment/Plan Chief Complaint/Hosp Course - G-tube site bleeding - per GI - 2 UNITS prbc transfusion today patient to undergo blood transfusion. - Monitor H&H. 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 - per pulmonary - follow-up chest x-ray. - Continue Levaquin -Dysphagia - sp PEG placement - aspiration precautions Problems: Subjective 24 Hr Interval Summary Free Text/Dictation Patient remain sedated and intubated via trach Exam/Review of Systems Vital Signs Vitals Vital Signs Date Time Temp Pulse Resp B/P Pulse Ox O2 Delivery O2 Flow Rate FiO2 11/04/17 10:14 98.4 102 19 132/74 98 11/04/17 09:20 30 11/04/17 06:00 Mechanical Ventilator Intake and Output 11/03/17 11/03/17 11/04/17 15:00 23:00 07:00 Intake Total 540 ml 640 ml Output Total 1900 ml 1200 ml Balance -1360 ml -560 ml Exam Constitutional: well developed Head: atraumatic, normocephalic Neck: supple Respiratory: clear to auscultation Cardiovascular: regular rate and rhythm Gastrointestinal: non-tender, soft Extremities: normal pulses Results Result Diagram: 11/04/1714 11/04/17 0914 Results 24 hrs Laboratory Tests Test 11/04/17 09:14 White Blood Count 8.6 Red Blood Count 3.40 L Hemoglobin 10.4 L Hematocrit 31.0 L Mean Corpuscular Volume 91.2 Mean Corpuscular Hemoglobin 30.6 Mean Corpuscular Hemoglobin Concent 33.5 Red Cell Distribution Width 12.9 Platelet Count 302 Mean Platelet Volume 9.9 Neutrophils % 56.2 Lymphocytes % 30.2 Monocytes % 9.9 Eosinophils % 2.6 Basophils % 0.5 Nucleated Red Blood Cells % 0.0 Neutrophils # 4.9 Lymphocytes # 2.6 Monocytes # 0.9 Eosinophils # 0.2 Basophils # 0.0 Nucleated Red Blood Cells # 0.0 Sodium Level 143 Potassium Level 4.2 Chloride Level 105 Carbon Dioxide Level 27 Anion Gap 15 Blood Urea Nitrogen 5 L Creatinine 0.50 L Glucose Level 108 Calcium Level 9.7 Medications Medications Current Medications Pantoprazole (Protonix Iv) 40 mg BID@06,18 IV Last administered on 11/04/17 05:43; Admin Dose 40 MG; Start 10/31/17 at 06:00 Morphine Sulfate (morphine) 2 mg Q4H PRN IV PAIN Last administered on 17:56; Admin Dose 2 MG; Start 10/31/17 at 00:30 Ondansetron HCl (Zofran Inj) 4 mg Q6H PRN IV NAUSEA AND/OR VOMITING; Start at 00:30 Acetaminophen 650 mg 650 mg Q4H PRN [place] PAIN AND OR ELEVATED TEMP; Start at 00:30 Multivitamins 10 ml/Dextrose/ Sodium Chloride 1,010 ml @ 100 mls/hr DAILY IV Last administered on 11/04/17 09:05; Admin Dose 100 MLS/HR; Start 10/31/17 at 09:00 Potassium Chloride/Dextrose/ Sod Cl (D5-NS + KCl 20 Meq) 1,000 ml @ 100 mls/hr Q10H IV Last administered on 11/04/17 05:00; Admin Dose 100 MLS/HR; Start at 01:00 [facility] This patient smith... PRN PRN XX WOUND CARE; Start 10/31/17 at 07:00 Lorazepam (Ativan) 1 mg Q4H PRN IV AGITATION Last administered on 11/03/17 23 :35; Admin Dose 1 MG; Start 11/01/17 at 22:00 CLARI CINTRON Nov 04, 2017 11:31
--- NOTE | 2017-11-04 12:09 | CONS ---
Date/Time of Note Date/Time of Note DATE: 11/04/17 TIME: 12:08 Assessment/Plan Assessment/Plan Additional Assessment/Plan Assessment recommendations; 1. Patient admitted with hematoma around G-tube insertion site with interval improvement. With stable hematocrit. 2. Chronic respiratory failure which is ventilator dependent due to quadriplegia. Continue current treatment. Consider discharge. Consultation Date/Type/Reason Admit Date/Time Oct 30, 2017 at 21:00 Initial Consult Date 10/31/17 Type of Consultation: Pulmonary/critical care 24 HR Interval Summary Free Text/Dictation Patient's condition is stable. Denies any shortness of breath. No further bleeding noted from G-tube insertion site. Patient has remained hemodynamically stable. General exam; young male, on ventilator via tracheostomy. Currently in no distress. Awake and alert. Exam/Review of Systems Vital Signs Vitals Vital Signs Date Time Temp Pulse Resp B/P Pulse Ox O2 Delivery O2 Flow Rate FiO2 11/04/17 10:14 98.4 102 19 132/74 98 11/04/17 09:20 30 11/04/17 06:00 Mechanical Ventilator Intake and Output 11/03/17 11/03/17 11/04/17 15:00 23:00 07:00 Intake Total 540 ml 640 ml Output Total 1900 ml 1200 ml Balance -1360 ml -560 ml Exam HEENT exam; supple neck, no JVD. No lymphadenopathy. Midline trachea. No thyromegaly. Tracheostomy in place. Patient has fair dentition. Chest exam; clear to auscultation. S1-S2 audible, no murmurs. Regular rhythm. Abdomen exam; soft, nondistended. No organomegaly. G-tube in place. No bleeding seen around G-tube site. Extremity exam; no edema. IMPORT/EXPORT ADMINISTRATOR exam; patient has stable quadriplegia. Results Result Diagram: 11/04/1714 11/04/17913 Results 24 hrs Laboratory Tests Test 11/04/17 09:14 White Blood Count 8.6 Red Blood Count 3.40 L Hemoglobin 10.4 L Hematocrit 31.0 L Mean Corpuscular Volume 91.2 Mean Corpuscular Hemoglobin 30.6 Mean Corpuscular Hemoglobin Concent 33.5 Red Cell Distribution Width 12.9 Platelet Count 302 Mean Platelet Volume 9.9 Neutrophils % 56.2 Lymphocytes % 30.2 Monocytes % 9.9 Eosinophils % 2.6 Basophils % 0.5 Nucleated Red Blood Cells % 0.0 Neutrophils # 4.9 Lymphocytes # 2.6 Monocytes # 0.9 Eosinophils # 0.2 Basophils # 0.0 Nucleated Red Blood Cells # 0.0 Sodium Level 143 Potassium Level 4.2 Chloride Level 105 Carbon Dioxide Level 27 Anion Gap 15 Blood Urea Nitrogen 5 L Creatinine 0.50 L Glucose Level 108 Calcium Level 9.7 Medications Medications Current Medications Pantoprazole (Protonix Iv) 40 mg BID@06,18 IV Last administered on 11/04/17 05:43; Admin Dose 40 MG; Start 10/31/17 at 06:00 Morphine Sulfate (morphine) 2 mg Q4H PRN IV PAIN Last administered on 17:56; Admin Dose 2 MG; Start 10/31/17 at 00:30 Ondansetron HCl (Zofran Inj) 4 mg Q6H PRN IV NAUSEA AND/OR VOMITING; Start at 00:30 Acetaminophen 650 mg 650 mg Q4H PRN [place] PAIN AND OR ELEVATED TEMP; Start at 00:30 Multivitamins 10 ml/Dextrose/ Sodium Chloride 1,010 ml @ 100 mls/hr DAILY IV Last administered on 11/04/17 09:05; Admin Dose 100 MLS/HR; Start 10/31/17 at 09:00 Potassium Chloride/Dextrose/ Sod Cl (D5-NS + KCl 20 Meq) 1,000 ml @ 100 mls/hr Q10H IV Last administered on 11/04/17 05:00; Admin Dose 100 MLS/HR; Start at 01:00 Miscellaneous Information (Pending [facility]yl Order For Wound Care) This patient smith... PRN PRN XX WOUND CARE; Start 10/31/17 at 07:00 Lorazepam (Ativan) 1 mg Q4H PRN IV AGITATION Last administered on 11/03/17 23 :35; Admin Dose 1 MG; Start 11/01/17 at 22:00 GANGA SALES Nov 04, 2017 12:09
[2017-11-04] MEDS: morphine 2 MG INJ IV PRN (17:22)
[2017-11-04] MEDS: LORAZEPAM 2 MG INJ IV PRN (22:46)
[2017-11-05] VITALS (24 sets, daily range): BP systolic 110–124; BP diastolic 65–74; PULSE 80–120; RESP 16–23
[2017-11-05] MEDS: D5-NS + KCL 20 MEQ 1,000 ML IV SCH ×3 (01:13→21:00)
[2017-11-05] MEDS: ALBUTEROL HFA 8 GM INHALER INH SCH ×6 (04:55→21:00)
[2017-11-05] MEDS: IPRATROPIUM (HFA) 12.9 GM INHALER INH SCH ×6 (04:55→21:00)
[2017-11-05] MEDS: PANTOPRAZOLE 40 MG INJ IV SCH ×2 (06:23→18:06)
[2017-11-05 08:54] LABS: BASOPHILS % 0.3 % (0.0-2.0); EOSINOPHILS # 0.2 10^3/ul (0.0-0.5); HEMATOCRIT 33.3 % (42.0-52.0); HEMOGLOBIN 10.2 g/dl (14.0-18.0); LYMPHOCYTES # 3.1 10^3/ul (0.8-2.9); MEAN CORPUSCULAR HEMOGLOBIN 31.4 pg (29.0-33.0); MEAN CORPUSCULAR HGB CONC 30.6 g/dl (32.0-37.0); MEAN CORPUSCULAR VOLUME 102.5 fl (82.0-101.0); MEAN PLATELET VOLUME 9.8 fl (7.4-10.4); MONOCYTES % 10.6 % (0.0-11.0); NEUTROPHIL # 4.8 10^3/ul (1.6-7.5); NEUTROPHILS % 52.7 % (39.0-77.0); PLATELET COUNT 225 10^3/UL (140-415); RED BLOOD COUNT 3.25 10^6/ul (4.70-6.10); RED CELL DISTRIBUTION WIDTH 15.8 % (11.5-14.5); WHITE BLOOD COUNT 9.1 10^3/ul (4.8-10.8)
[2017-11-05] MEDS: MULTIVITAMINS 10 ML in DEXTROSE 5%-0.45% NACL 1,000 ML IV SCH (09:01)
[2017-11-05 10:37] LABS: CALCIUM 9.6 mg/dl (8.4-10.2); CREATININE 0.56 mg/dl (0.61-1.24)
--- NOTE | 2017-11-05 12:48 | CONS ---
Date/Time of Note Date/Time of Note DATE: 11/05/17 TIME: 12:46 Consult Date/Type/Reason Admit Date/Time Oct 30, 2017 at 21:00 Initial Consult Date 10/31/17 Type of Consultation: Pulmonary/critical care Subjective Patient remains comfortable this morning. No acute events. No distress. Objective Vital Signs Date Time Temp Pulse Resp B/P Pulse Ox O2 Delivery O2 Flow Rate FiO2 11/05/17 11:07 98.9 94 18 121/73 100 11/05/17 08:30 30 11/04/17 18:20 Mechanical Ventilator Intake and Output 11/04/17 11/04/17 11/05/17 15:00 23:00 07:00 Intake Total 640 ml 380 ml Output Total 1600 ml 1100 ml Balance -960 ml -720 ml Exam GENERAL: Young gentleman comfortable on mechanical ventilation via tracheostomy VITAL SIGNS: per chart NECK: Supple. No JVD or lymphadenopathy. CARDIAC EXAM: S1, S2. No added sounds or murmurs. CHEST: clear bilaterally, No added sounds, rales or wheezes ABDOMEN: Soft, nontender. No guarding or rebound. EXTREMITIES: No cyanosis, clubbing or edema. NEUROLOGIC: Generalized weakness. Results/Medications Result Diagram: 11/05/1772211/05/1723 Results 24 hrs Laboratory Tests Test 11/05/17 07:23 White Blood Count 9.1 Red Blood Count 3.25 L Hemoglobin 10.2 L Hematocrit 33.3 L Mean Corpuscular Volume 102.5 H Mean Corpuscular Hemoglobin 31.4 Mean Corpuscular Hemoglobin Concent 30.6 L Red Cell Distribution Width 15.8 #H Platelet Count 225 # Mean Platelet Volume 9.8 Neutrophils % 52.7 Lymphocytes % 34.0 Monocytes % 10.6 Eosinophils % 2.0 Basophils % 0.3 Nucleated Red Blood Cells % 0.0 Neutrophils # 4.8 Lymphocytes # 3.1 H Monocytes # 1.0 H Eosinophils # 0.2 Basophils # 0.0 Nucleated Red Blood Cells # 0.0 Sodium Level 144 Potassium Level 4.0 Chloride Level 106 Carbon Dioxide Level 27 Anion Gap 15 Blood Urea Nitrogen 7 Creatinine 0.56 L Glucose Level 105 Calcium Level 9.6 Medications Current Medications Pantoprazole (Protonix Iv) 40 mg BID@,18 IV Last administered on 11/05/17t 06:23; Admin Dose 40 MG; Start 10/31/17 at 06:00 Morphine Sulfate (morphine) 2 mg Q4H PRN IV PAIN Last administered on 17:22; Admin Dose 2 MG; Start 10/31/17 at 00:30 Ondansetron HCl (Zofran Inj) 4 mg Q6H PRN IV NAUSEA AND/OR VOMITING; Start at 00:30 Acetaminophen 650 mg 650 mg Q4H PRN [place] PAIN AND OR ELEVATED TEMP; Start at 00:30 Multivitamins 10 ml/Dextrose/ Sodium Chloride 1,010 ml @ 100 mls/hr DAILY IV Last administered on 11/05/17 09:01; Admin Dose 100 MLS/HR; Start 10/31/17 at 09:00 Potassium Chloride/Dextrose/ Sod Cl (D5-NS + KCl 20 Meq) 1,000 ml @ 100 mls/hr Q10H IV Last administered on 11/05/17 01:13; Admin Dose 100 MLS/HR; Start at 01:00 Miscellaneous Information (Pending [facility]yl Order For Wound Care) This patient smith... PRN PRN XX WOUND CARE; Start 10/31/17 at 07:00 Lorazepam (Ativan) 1 mg Q4H PRN IV AGITATION Last administered on 11/04/17 22 :46; Admin Dose 1 MG; Start 11/01/17 at 22:00 Assessment/Plan Chief Complaint/Hosp Course Assessment 1. Chronic respiratory failure with underlying encephalopathy 2. G-tube site hematoma Plan 1. Continue respiratory support 2. Pulmonary toilet 3. GI recommendations Problems: MIREILLE MARSHALL MD, [facility] Nov 05, 2017 12:48
--- NOTE | 2017-11-05 13:16 | PN ---
Date/Time of Note Date/Time of Note DATE: 11/05/17 TIME: 13:15 Assessment/Plan VTE Prophylaxis VTE Prophylaxis Intervention: other Lines/Catheters [facility] Saline Lock Urinary Cath still in place: No Assessment/Plan Chief Complaint/Hosp Course - G-tube site bleeding - per GI - 2 UNITS prbc transfusion today patient to undergo blood transfusion. - Monitor H&H. 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 - per pulmonary - follow-up chest x-ray. - Continue Levaquin -Dysphagia - sp PEG placement - aspiration precautions Problems: Subjective 24 Hr Interval Summary Free Text/Dictation Patient has no complaint, trach in place Exam/Review of Systems Vital Signs Vitals Vital Signs Date Time Temp Pulse Resp B/P Pulse Ox O2 Delivery O2 Flow Rate FiO2 11/05/17 11:07 98.9 94 18 121/73 100 11/05/17 08:30 30 11/04/17 18:20 Mechanical Ventilator Intake and Output 11/04/17 11/04/17 11/05/17 15:00 23:00 07:00 Intake Total 640 ml 380 ml Output Total 1600 ml 1100 ml Balance -960 ml -720 ml Exam Constitutional: well developed Head: atraumatic, normocephalic Neck: supple Respiratory: diminished breath sounds Cardiovascular: regular rate and rhythm Gastrointestinal: non-tender, soft Extremities: normal pulses Results Result Diagram: 11/05/17 0723 11/05/17 0723 Results 24 hrs Laboratory Tests Test 11/05/17 07:23 White Blood Count 9.1 Red Blood Count 3.25 L Hemoglobin 10.2 L Hematocrit 33.3 L Mean Corpuscular Volume 102.5 H Mean Corpuscular Hemoglobin 31.4 Mean Corpuscular Hemoglobin Concent 30.6 L Red Cell Distribution Width 15.8 #H Platelet Count 225 # Mean Platelet Volume 9.8 Neutrophils % 52.7 Lymphocytes % 34.0 Monocytes % 10.6 Eosinophils % 2.0 Basophils % 0.3 Nucleated Red Blood Cells % 0.0 Neutrophils # 4.8 Lymphocytes # 3.1 H Monocytes # 1.0 H Eosinophils # 0.2 Basophils # 0.0 Nucleated Red Blood Cells # 0.0 Sodium Level 144 Potassium Level 4.0 Chloride Level 106 Carbon Dioxide Level 27 Anion Gap 15 Blood Urea Nitrogen 7 Creatinine 0.56 L Glucose Level 105 Calcium Level 9.6 Medications Medications Current Medications Pantoprazole (Protonix Iv) 40 mg BID@06,18 IV Last administered on 11/05/17 06:23; Admin Dose 40 MG; Start 10/31/17 at 06:00 Morphine Sulfate (morphine) 2 mg Q4H PRN IV PAIN Last administered on 17:22; Admin Dose 2 MG; Start 10/31/17 at 00:30 Ondansetron HCl (Zofran Inj) 4 mg Q6H PRN IV NAUSEA AND/OR VOMITING; Start at 00:30 Acetaminophen 650 mg 650 mg Q4H PRN [place] PAIN AND OR ELEVATED TEMP; Start at 00:30 Multivitamins 10 ml/Dextrose/ Sodium Chloride 1,010 ml @ 100 mls/hr DAILY IV Last administered on 11/05/17 09:01; Admin Dose 100 MLS/HR; Start 10/31/17 at 09:00 Potassium Chloride/Dextrose/ Sod Cl (D5-NS + KCl 20 Meq) 1,000 ml @ 100 mls/hr Q10H IV Last administered on 11/05/17 01:13; Admin Dose 100 MLS/HR; Start at 01:00 [facility] This patient smith... PRN PRN XX WOUND CARE; Start 10/31/17 at 07:00 Lorazepam (Ativan) 1 mg Q4H PRN IV AGITATION Last administered on 11/04/17 22 :46; Admin Dose 1 MG; Start 11/01/17 at 22:00 CLARI CINTRON Nov 05, 2017 13:16
--- NOTE | 2017-11-06 06:57 | PN ---
DATE: 11/02/2017 The patient is unable to communicate, is status post tracheostomy. He had a G-tube site bleeding th at apparently has spontaneously stopped after cleaning all the area which was covered by the clots a nd at this time, on examination, there is no bleeding coming from the gastrostomy site. Hemoglobin is 10.1 as of today morning. CLINICAL IMPRESSION: Stable gastrostomy site bleeding. PLAN: Continue to observe the patient. Dictated By: BETTY LONG MD NC/NTS Conf#: [id number] DID#: [id number] CC: WILLAM ASKEW MD;*EndCC*
== END 2017-11-05 23:00 | DRG 393 ==
LOC: ICU 21:00 → TEL 11-01 02:25
PROVIDERS: ADMIT Internal Medicine; ATTEND Internal Medicine
PROC: 5A1955Z Respiratory Ventilation, Greater than 96 Consecutive Hours (ICD-10-PCS; principal; 2017-10-30)
PROC: 30233N1 Transfusion of Nonautologous Red Blood Cells into Peripheral Vein, Percutaneous Approach (ICD-10-PCS; 2017-10-31)
DX: K94.21 Gastrostomy hemorrhage (principal); G82.50 Quadriplegia, unspecified; G93.40 Encephalopathy, unspecified; J96.10 Chronic respiratory failure, unspecified whether with hypoxia or hypercapnia; Z93.0 Tracheostomy status; R13.10 Dysphagia, unspecified; D64.9 Anemia, unspecified; S14.101S Unspecified injury at C1 level of cervical spinal cord, sequela
CPT/HCPCS: 36430; 80048; 83735; 84100; 85014; 85018; 85025; 86850; 86900; 86901; 86920; 87081; 94002; 94003; 94640; C9113; J1956; J2060; J2270; J3480; J7030; J7042; P9016